=== PATIENT | female | born 1995 | race Caucasian/White ===

== ENCOUNTER 2022-01-23 08:57 | Emergency (ER) | payer OTHER, SELFPAY ==
--- NOTE | 2022-01-23 08:59 | ED.DENTAL ---
HPI - Dental/Oral General Chief complaint: Dental/Oral Stated complaint: Toothache Time Seen by Provider: 01/23/22 08:59 Source: patient and RN notes reviewed History of Present Illness HPI Narrative: Patient is a 26-year-old female who presents the urgent care with complaints of right lower dental pain. Patient states is been ongoing for approximately 3 or 4 days. Patient states she is also is COVID-positive as of yesterday with an at home COVID test. Patient states that she has been taking Tylenol and ibuprofen for the pain. Reports of fevers. Reports of bit bad taste in her mouth and pus coming from the molar. No other acute complaints. No acute distress noted. Patient read the plan of care. Some parts of this dictation were generated by voice recognition software and may contain typographical and/or grammatical inaccuracies. Related Data Allergies Allergy/AdvReac Type Severity Reaction Status Date / Time Penicillins Allergy Rash Verified 01/23/22 09:36 Review of Systems Review of Systems: CONSTITUTIONAL: Denies fever, chills, or sweats. EYES: Denies visual changes, redness, or discharge. ENT: Denies rhinorrhea, congestion, sore throat, or otalgia. Reports of right lower dental pain CARDIOVASCULAR: Denies chest pain, palpitations, or edema. RESPIRATORY: Denies cough or dyspnea. GASTROINTESTINAL: Denies abdominal pain, nausea, vomiting, or diarrhea. GENITOURINARY: Denies dysuria or hematuria. SKIN: Denies rash or itching. MUSCULOSKELETAL: Denies back pain, joint pain, or myalgia. NEUROLOGIC: Denies headache, numbness, or weakness. All other systems reviewed are negative, except as documented in HPI. PMFSH Comments At the time of my signature, I reviewed and agree with the nursing past medical, surgical, social, and family history. There is no relevant family history pertinent to the patient complaint. Exam Narrative: GENERAL: This is a well-nourished, well-developed patient, in no apparent distress. HEAD: normocephalic, atraumatic. EYES: PERRL. Sclera clear/white. Vision is grossly intact. EARS: External ears normal NOSE: External nose normal with no obvious nasal discharge, nares without redness, no rhinorrhea. THROAT: Mucous membranes moist, posterior pharynx clear. Mild postnasal drainage DENTAL: Good oral hygiene with impacted right lower third molar, tooth #32 with mild surrounding erythema NECK: Neck supple Course Course Level of Care: Express Care Visit Vital Signs Vital signs: Vital Signs Temperature 98.7 F 01/23/22 09:30 Pulse Rate 99 01/23/22 09:30 Respiratory Rate 18 01/23/22 09:30 Blood Pressure 140/88 01/23/22 09:30 Pulse Oximetry 100 01/23/22 09:30 Oxygen Delivery Room Air 01/23/22 09:30 Temperature 98.7 F 01/23/22 09:30 Pulse Rate 99 01/23/22 09:30 Respiratory Rate 18 01/23/22 09:30 Blood Pressure 140/88 01/23/22 09:30 Pulse Oximetry 100 01/23/22 09:30 Oxygen Delivery Room Air 01/23/22 09:30 Reviewed MDM - Dental/Oral MDM Narrative Medical decision making narrative: Explained to the patient that the tooth needs to be removed. It is likely causing her pain due to the impaction. Due to the drainage and bad taste, will treat for possible infection. However would recommend calling the dental school today for future appointment and evaluation. Use Tylenol/ibuprofen as needed for pain or discomfort. Be sure to eat and drink with the medication. Follow-up with your PCP within 2 to 5 days or for worsening symptoms or failure to improve. Differential Diagnosis Differential diagnosis: Likely gingival abscess, dental caries, toothache, dental abscess, fracture of tooth and aphthous ulcer Critical Care Time Critical Care Time Critical Care Time: No Discharge Plan Discharge Clinical Impression: Impacted tooth, Pain, dental Patient Disposition: Home, Self-Care Condition: Stable Instructions: Antibiotic Form, Dental Abscess (ED) Addit
[2022-01-23 09:30] VITALS: BP 140/88; PULSE 99; RESP 18; TEMP 37.1; O2SAT 100
== END 2022-01-23 09:55 | disposition home or self-care (01) ==
PROVIDERS: Emergency Provider Nurse Practitioner Family
DX: K01.1 Impacted teeth (principal); K08.89 Other specified disorders of teeth and supporting structures
CPT/HCPCS: 99213; G0463